=== PATIENT | female | born 1995 | race Caucasian/White ===

== ENCOUNTER 2016-04-23 01:51 | Emergency (ER) | payer OTHER ==
[~2016-04-23] VITALS: Ht 170.2 cm; Wt 59.0 kg
[2016-04-23 01:52] VITALS: BP 136/83; PULSE 115; RESP 22; TEMP 97.8; O2SAT 96
[2016-04-23] MEDS ORDERED: ROBA500T PO (02:24)
[2016-04-23] MEDS ORDERED: ULTR50TA5 PO (02:24)
[2016-04-23] MEDS ORDERED: KETOROLAC TROMETHAMINE 60 MG/2 ML (IM) VIAL IM ONE (02:30)
[2016-04-23] MEDS ORDERED: ACETAMINOPHEN/HYDROcodone 325 MG/5 MG TAB PO ONE (02:30)
[2016-04-23] MEDS ORDERED: ORPHENADRINE INJ 60 MG/2 ML AMP IM ONE (02:30)
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
== END 2016-04-23 02:53 | disposition home or self-care (01) ==
LOC: NEPB 01:51
DX: M54.5 Low back pain (principal); G89.29 Other chronic pain
CPT/HCPCS: 96372; 99283; J1885; J2360